=== PATIENT | female | born 1975 | race Caucasian/White ===

== ENCOUNTER 2018-01-11 08:44 | Emergency (ER) | payer MEDICAID, SELFPAY ==
[2018-01-11 08:53] VITALS: BP 141/89; PULSE 88; RESP 16; TEMP 36; O2SAT 98
[2018-01-11 10:02] LABS: Bilirubin Small (Negative); Blood Small (Negative); Clarity Sl Cloudy; Glucose Negative (Negative); Ketones 15 mg/dL (Negative); Leukocyte Esterase Moderate (Negative); Nitrite Positive (Negative); Specific Gravity 1.015 (1.005-1.025); pH 5.5 (5-8)
--- NOTE | 2018-01-11 10:06 | ED.GENADUL_ITS ---
Disposition Clinical Impression: Herpes simplex virus (HSV) infection of vagina Disposition: HOME Instructions: Genital Herpes Simplex (ED) Additional Instructions: Take antiviral medication as prescribed. 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 Return to the emergency department immediately for any worsening or new concerning symptoms. Prescriptions: ValACYclovir [Valtrex] 1,000 mg PO DAILY #5 tab Referrals: Stella Mistry MD [ [facility] STAFF PHYSICIAN] - Medical Decision Making - Medical Decision Making 42-year-old female here with recurrent herpes vaginalis. Plan to treat with Valtrex 1 g daily 5 days. Patient given oxycodone 5 mg, 1 tablet to go for severe pain. Patient was instructed to follow-up with her movie shot camera operator. She understands that she is currently contagious and should abstain from sexual activity. History of Present Illness - General Chief complaint: Abd Prob Stated complaint: UNKNOWN Time Seen by Provider: 01/11/18 09:21 Source: patient Mode of arrival: ambulatory Limitations: no limitations - History of Present Illness Initial comments: -year-old female with history of vaginal herpes, endometriosis, presents with chief complaint of vaginal pain. Patient notes moderate to severe pain described as burning and itching that started 4 days ago and has persisted. Pain is worse with urination. She has no associated vaginal discharge. She has had some spotting recently. Patient notes she contracted herpes from her ex- 5 years ago and has had 2 outbreaks with similar symptoms in the past. She is not on chronic antiviral therapy. - Related Data Acetaminophen [Tylenol] 1,000 mg PO Q6H PRN 01/11/18 Ibuprofen 2 - 4 tab PO Q8H PRN 01/11/18 ValACYclovir [Valtrex] 1,000 mg PO DAILY #5 tab 01/11/18 Allergies Allergy/AdvReac Type Severity Reaction Status Date / Time sulfamethoxazole Allergy Unknown Unverified 01/11/18 08:55 [From Bactrim] tramadol HCl [From Ultracet] Allergy Unknown Unverified 01/11/18 08:55 trimethoprim [From Bactrim] Allergy Unknown Unverified 01/11/18 08:55 Review of Systems Constitutional: denies: chills, fever Gastrointestinal: abdominal pain (Lower suprapubic abdominal discomfort mild). denies: nausea, vomiting, diarrhea Genitourinary: as per HPI, dysuria. denies: discharge Skin: denies: rash Neurological: denies: headache Past Medical History - Past Medical History Herpes vaginalis, endometriosis - Social History Smoking status: current everyday smoker Alcohol use: none General Exam - General Limitations: no limitations General appearance: alert, in no apparent distress - Eye Eye exam: Absent: scleral icterus, conjunctival injection - Respiratory Respiratory exam: Present: normal lung sounds bilaterally - Cardiovascular Cardiovascular Exam: Present: regular rate, normal rhythm - GI/Abdominal GI/Abdominal exam: Present: soft. Absent: distended, tenderness - External exam: Present: lesions (Tender shallow ulcer noted just inside the introitus right labial, no discharge or bleeding, exam limited secondary to pain ), other (Exam performed with female nurse Pa present). Absent: swelling - Neurological Exam Neurological exam: Present: alert. Absent: altered - Skin Skin exam: Present: warm, dry, intact Course Vital Signs - 24 hr 01/11/18 08:53 Temperature 36.0 C L Pulse 88 Respiratory 16 Rate Blood Pressure 141/89 Pulse Oximetry 98
[2018-01-11 10:15] LABS: Bacteria Many HPF (Negative); Crystals Negative HPF (Negative); Epithelial Cells Few HPF (Negative); Mucus Trace (Negative); Other Cells Rare Renal (Negative); RBC 20-50 (0-2); WBC >50 HPF (0-5)
[2018-01-11] MEDS: oxyCODONE 5 MG TAB PO (10:15)
[2018-01-11 10:16] LABS: C & S Indicated? Yes
--- NOTE | 2018-01-13 09:57 | ED.FU.B ---
- Follow Up Follow Up Plan: patient's urine grew e coli, attempted to reach patient to see if she was symptomatic but no answer, message left for her to call back
--- NOTE | 2018-01-13 11:59 | ED.FU.B ---
- Follow Up Follow Up Plan: Clair called back and states she has had urinary symptoms including burning. I confirmed she has no allergies to cipro so I called this in to her pharmacy at [facility]
== END 2018-01-11 10:18 | disposition home or self-care (01) ==
PROVIDERS: Emergency Provider Student in an Organized Health Care Education/Training Program; PCP Nurse Practitioner Family
DX: A60.04 Herpesviral vulvovaginitis (principal); N39.0 Urinary tract infection, site not specified; B96.20 Unspecified Escherichia coli [E. coli] as the cause of diseases classified elsewhere
CPT/HCPCS: 81025; 87077; 99283; 81003; 81015; 87086; 87186

== ENCOUNTER 2020-01-02 01:09 | Outpatient (CLI) | payer MEDICAID, SELFPAY ==
--- NOTE | 2020-01-02 | DI.MAMMO_ITS ---
EXAM: MAMMO SCREENING CLINICAL HISTORY: SCREENING, Z12.39 TECHNIQUE: Mammograms were interpreted according to the usual protocol including computer analysis w [employer] CAD system, tomosynthesis and C-view imaging. COMPARISON: FINDINGS: The breasts are of moderate density with fairly symmetrical distribution of fibroglandular tissue. N o dominant mass or clumped microcalcification is identified in either breast. The current examinatio n is compared with previous examinations including August 2017 and there has been no gross interval ch nelson in appearance in comparison with the prior studies. IMPRESSION: No specific evidence of malignancy at this time. Routine screening examinations are suggested at yea rly intervals in this age group due to the family history of breast carcinoma. BI-RADS Cat 1 - Negative: Breast Density - Category B - Scattered areas of fibroglandular density
== END 2020-01-02 01:29 ==
PROVIDERS: PCP Nurse Practitioner Family; Visit Provider Nurse Practitioner Family
DX: Z12.31 Encounter for screening mammogram for malignant neoplasm of breast (principal); R92.2 Inconclusive mammogram; Z80.3 Family history of malignant neoplasm of breast
CPT/HCPCS: 77063; 77067

== ENCOUNTER 2021-11-27 13:42 | Emergency (ER) | payer MEDICAID, SELFPAY ==
--- NOTE | 2021-11-27 13:45 | RT.EKG_ITS ---
APPROVED REPORT Exam: Resting ECG Reason for Exam: Chest pain Patient Location: E HR:59 bpm ECG Measurements Heart Rate 59 AXIS MT 169 P 68 QRSd 83 QRS 7 QT 419 T 45 QTc 417 Conclusion Sinus bradycardia.. Probable left atrial enlargement.
[2021-11-27 13:52] VITALS: BP 142/96; PULSE 70; RESP 18; TEMP 36.6; O2SAT 98
[2021-11-27 14:02] VITALS: RESP 17
--- NOTE | 2021-11-27 14:15 | DI.CT_ITS ---
Exam(s) CT CHEST PE CTA EXAM: CT CHEST PE CTA CLINICAL HISTORY: Shortness of breath, chest pain radiating back. TECHNIQUE: Imaging Protocol: CT angiography of the chest was performed using pulmonary embolus zully col. Multi planar reconstructions were performed. CONTRAST MATERIAL: Intravenous: Omnipaque 350 Contrast volume: 100 cc COMPARISON: No exams were available for comparison FINDINGS: CHEST: PULMONARY ARTERIES: There are no intraluminal filling defects to suggest acute pulmonary emboli. LUNGS: There are no confluent infiltrates nor evidence of pulmonary infarction.. There are no pleural effusions. No pulmonary edema. MEDIASTINUM: There is no hilar nor mediastinal adenopathy. Visualized thyroid unremarkable. CARDIAC: Heart size is upper normal. There is no pericardial effusion.Caliber of the thoracic aorta is within normal limits. There is no prominent shift of the interventricular septum. PARTIALLY VISUALIZED UPPERMOST ABDOMEN: Mild reflux of contrast into the intrahepatic IVC OSSEOUS: No significant osseous lesions.. IMPRESSION: 1. No evidence of acute pulmonary emboli. No evidence of pulmonary infarction.No pleural effusions. 2. Mild reflux of contrast into the intrahepatic IVC indicates possible element of right heart strain . 3. Heart size upper normal. There is no pericardial effusion RADIATION DOSE DELIVERED: 274.64mGy.cm Total DLP DATA REPOSITORY: All CT scans at this facility are submitted to the National Radiology Data Registry (NRDR) Dose Index Registry (DIR) with the [employer] (ACR). RADIATION OPTIMIZATION: All CT scans at this facility use at least one of these dose optimization te chniques: automated exposure control; mA and/or kV adjustment per patient size (includes targeted exa ms where dose is matched to clinical indication); or iterative reconstruction.
--- NOTE | 2021-11-27 14:28 | W.ED.GENAD ---
Discharge Plan Disposition Patient Disposition: HOME Condition: Stable Discharge Details Clinical Impression: Hypertension, Chest pain Primary Care Provider: Nadya Presley ED Provider: Anika Baez Home Meds and New Rx's Prescriptions: Continued lamotrigine 150 mg tablet 1 tab PO DAILY Label Comments: TAKE 1 TABLET BY MOUTH ONCE DAILY gabapentin 300 mg capsule 1 cap PO HS Label Comments: TAKE 1 CAPSULE BY MOUTH THREE TIMES DAILY lisinopril 5 mg Tablet 5 mg PO DAILY gabapentin 100 mg capsule 1 cap PO DAILY AM Label Comments: TAKE 1 CAPSULE BY MOUTH ONCE DAILY AT NIGHT WITH A 300MG CAPSULE topiramate 50 mg tablet 1 tab PO DAILY Label Comments: TAKE 1 TABLET BY MOUTH ONCE DAILY lorazepam 0.5 mg tablet 1 tab PO DAILY PRN Label Comments: TAKE 1 TABLET BY MOUTH ONCE DAILY NEEDED FOR 28 DAYS FOR PANIC acetaminophen [Mapap Extra Strength] 500 MG tablet 1,000 mg PO Q6H PRN ibuprofen 200 MG tablet 2 - 4 tab PO Q8H PRN valacyclovir 1,000 MG tablet 1,000 mg PO DAILY Qty: 5 0RF Discharge Instructions Instructions: Chest Pain (ED), Hypertension (ED) Additional Instructions: There is some concerning findings on the CT which show possible pulmonary hypertension. At this time please continue taking your blood pressure medication as directed have the echocardiogram scheduled within the next 3 to 5 days and follow-up with your primary care provider. Please take a baby aspirin 81 mg chewable once daily. Discussed with your primary care provider increasing your lisinopril to 10 mg a day. Follow up with primary care provider in 3-5 days. Return to ED sooner if any worsening or concerns. Increase oral fluids. Please take Tylenol or Ibuprofen with food every 4-6 hours as needed for pain and swelling. At this time there is no evidence for heart attack or any emergent condition which would require you to be admitted. Stand Alone Forms: Work Release Referrals: Nadya Presley [Primary Care Provider] - 5 days Discharge Data Discharge Date/Time-TO BE ENTERED AT DEPARTURE: 11/27/21 18:52 Medical Decision Making <Benjamín Varela NP - Last Filed: 12/01/21 11:25> Patient presenting to the emergency department for chief complaint of chest pain that has been going on for 2 to 3 weeks. Patient was newly diagnosed with hypertension but this morning she woke up with worsening left-sided chest pain, radiating up into her clavicle, neck, and into her back. She states that this is significantly abnormal. Patient does have history of anxiety but denies this being any sort of panic type symptoms. She did state a elevated blood pressure this morning but has been taking her normal prescribed medications. Cardiac and respiratory exam is otherwise unremarkable except for some tenderness and subjective swelling surrounding the left clavicle. Patient denies any injury or trauma. We will plan on checking patient's labs, standard cardiac labs, and performing CTA for evaluation of possible PE or aortic abnormality given description of radiating pain. Patient does report slight headache so we will give aspirin and continue to monitor. Review of initial labs show an unremarkable CBC, CMP does show elevated anion gap of 12.1 with creatinine 1.1 and a low AST otherwise initial troponin is nondetectable and BNP is 223. We will give patient some IV fluids for hydration pending second troponin and CT scan results. <Anika Baez NP - Last Filed: 11/27/21 23:07> Patient presenting to the emergency department for chief complaint of chest pain that has been going on for 2 to 3 weeks. Patient was newly diagnosed with hypertension but this morning she woke up with worsening left-sided chest pain, radiating up into her clavicle, neck, and into her back. She states that this is significantly abnormal. Patient does have history of anxiety but denies this being any sort of panic type symptoms. She did state a elevated blood pressure this morning but has been taking her normal prescribed medications. Cardiac and respiratory exam is otherwise unremarkable except for some tenderness and subjective swelling surrounding the left clavicle. Patient denies any injury or trauma. We will plan on checking patient's labs, standard cardiac labs, and performing CTA for evaluation of possible PE or aortic abnormality given description of radiating pain. Patient does report slight headache so we will give aspirin and continue to monitor. Review of initial labs show an unremarkable CBC, CMP does show elevated anion gap of 12.1 with creatinine 1.1 and a low AST otherwise initial troponin is nondetectable and BNP is 223. We will give patient some IV fluids for hydration pending second troponin and CT scan results. 1648: SJ: Care assumed from provider (Cristofer Varela NP) Please see their initial HPI, PE, and documentation. Discussed patient details and case and pending workup and disposition. Patient is hemodynamically stable, and alert and oriented. At the time of sign out awaiting CT result and repeat Trop. 1649: Patient c/o severe SILVA, has recieved Aspirin. Will give 1gm Tylenol Patient is A&O x 4 no neuro deficits. 1714: CT shows diffuse interstitial infiltrates, questionable reflux of contrast within the inferior vena cava and hepatic veins consider pulmonary hypertension. At this time patient is hemodynamically stable. O2 sat 100%, room air. At this time pending repeat troponin will recommend order outpatient echocardiogram referral for follow-up to PCP. Repeat troponin within normal limits, patient reevaluation no jugular vein distention, proBNP within normal limits, patient does report some dyspnea. I did discuss CT results with her she verbalizes understanding. Outpatient echocardiogram ordered with follow-up with PCP. I did recommend to discuss whether or not lisinopril should be increased with PCP. This text was generated using [employer] system, please disregard any oddities of phrase or misspellings. Medical Records Medical records reviewed: Yes I reviewed the patient's medical records. Imaging Data Radiologic Study: Imaging: CT Scan Radiologist's impression: CR CHEST 2 VIEWS PA,LAT 05/19/2017 10:00 AM FINDINGS: Pulmonary arteries: There is no evidence of filling defects within the pulmonary arterial circulation to suggest pulmonary embolism. The pulmonary artery is normal in caliber. Aorta: The aorta is normal. Lungs: There are diffuse interstitial infiltrates present. This may represent cardiogenic versus noncardiogenic edema. An acute inflammatory process and/or infectious process/pneumonia are not excluded. There is minimal bibasilar atelectasis. There is heterogeneous attenuation of the pulmonary parenchyma, consistent with air trapping from underlying small airways disease. Mild paraseptal emphysematous changes present at the apices of the lungs bilaterally. Pleural spaces: There is no evidence of pneumothorax. There are no pleural effusions present. IMPRESSION: 1. There are diffuse interstitial infiltrates present. This may represent cardiogenic versus noncardiogenic edema. An acute inflammatory process and/or infectious process/pneumonia are not excluded. 2. There is heterogeneous attenuation of the pulmonary parenchyma, consistent with air trapping from underlying small airways disease. 3. There is no evidence of filling defects within the pulmonary arterial circulation to suggest pulmonary embolism. 4. The right ventricular to left ventricular ratio is abnormal measuring approximately 1.1. There is reflux of contrast within the inferior vena cava and hepatic veins consistent with elevated right-sided cardiac pressures. This may reflect right heart strain. Consider pulmonary hypertension. Thank you for allowing us to participate in the care of your patient. Dictated and Authenticated by: Joey Shore MD HPI <Benjamín Varela NP - Last Filed: 12/01/21 11:25> General Mode of arrival: ambulatory. Date/Time Provider Initiated Documentation: 11/27/21 13:46. Limitations to Documentation: no limitations. Information obtained by: patient and RN notes reviewed. History of Present Illness 46 year old F presents to the emergency department with the chief complaint of Chest pain, described as moderate, with intensity rated at 5. Quality is described as aching, and is localized to the chest. Patient reports radiation to back. Patient started experiencing this week(s) (3) and it has been constant. No relieving factors improve symptom(s), No exacerbating factors reported . Patient notes headaches; denies fever/chills. Patient did receive the following treatments prior to arrival, none Related Data Home Medications Medication Instructions Recorded Confirmed acetaminophen 500 mg tablet (Mapap 1,000 mg PO Q6H PRN 01/11/18 11/27/21 Extra Strength) ibuprofen 200 mg tablet 2 - 4 tab PO Q8H PRN 01/11/18 11/27/21 valacyclovir 1 gram tablet 1,000 mg PO DAILY #5 tabs 01/11/18 11/27/21 gabapentin 100 mg capsule 1 cap PO DAILY AM 11/27/21 11/27/21 gabapentin 300 mg capsule 1 cap PO HS 11/27/21 11/27/21 lamotrigine 150 mg tablet 1 tab PO DAILY 11/27/21 11/27/21 lisinopril 5 mg tablet 5 mg PO DAILY 11/27/21 11/27/21 lorazepam 0.5 mg tablet 1 tab PO DAILY PRN 11/27/21 11/27/21 topiramate 50 mg tablet 1 tab PO DAILY 11/27/21 11/27/21 Previous Rx's Medication Instructions Recorded valacyclovir 1 gram tablet 1,000 mg PO DAILY #5 tabs 01/11/18 Allergies Allergy/AdvReac Type Severity Reaction Status Date / Time sulfamethoxazole Allergy Unknown Unverified 11/27/21 14:15 [From Bactrim] tramadol HCl [From Ultracet] Allergy Unknown Unverified 11/27/21 14:15 trimethoprim [From Bactrim] Allergy Unknown Unverified 11/27/21 14:15 General Stated Complaint: Chest Pain LISA: 3 Review of Systems <Benjamín Varela NP - Last Filed: 12/01/21 11:25> Constitutional Constitutional: Denies chills, Denies fever(s) and Denies malaise ENT Ears, Nose, Mouth, and Throat: Reports neck pain Cardiovascular Cardiovascular: Reports as per HPI, Reports chest pain, Denies chest pain with activity, Denies syncope, Denies irregular heart rhythm, Denies palpitations and Reports dyspnea Respiratory Respiratory: Denies cough, Denies hemoptysis and Reports dyspnea Gastrointestinal Gastrointestinal: Denies abdominal pain, Denies nausea and Denies vomiting Musculoskeletal Musculoskeletal: Reports neck pain Neurologic Neurologic: Denies syncope Psychiatric Psychiatric: Denies anxiety Endocrine Endocrine: Denies cold intolerance, Denies heat intolerance and Denies palpitations PFSH <Benjamín Varela NP - Last Filed: 12/01/21 11:25> All Active Problems (Updated 11/27/21 @ 18:37 by Anika Baez NP) Hypertension (Chronic) Chest pain (Acute) Social History Smoking/Tobacco Use Status: Current every day Smoking risk assessment performed?: Yes Alcohol Intake: current Alcohol Intake frequency: holidays/special occasions only Drug use: Daily Substance use type: marijuana Do you feel safe in your relationship?: Yes Exam <Benjamín Varela NP - Last Filed: 12/01/21 11:25> Const General: cooperative, healthy appearing, comfortable, no acute distress, not diaphoretic and not ill appearing Nutritional Appearance: average body habitus Orientation: alert, awake and oriented x3 Limitations: mental status not altered Neck Neck: normal visual inspection, full ROM, trachea midline, supple and no anterior neck swelling Thyroid: thyroid normal Carotids: normal carotid upstroke and no bruits Chest Chest: normal inspection of the chest and tenderness clavicle on the left (Tissue surrounding left clavicle mostly to proximal to mid) Resp Effort & Inspection: normal respiratory effort and able to speak in complete sentences Auscultation: clear to auscultation bilaterally Cardio Jugular venous pressure: no JVD Palpation: normal PMI Rate: regular rate Rhythm: regular rhythm Heart Sounds: S1 normal, S2 normal, no click, no gallops, no murmurs and no rubs Bruits: no abdominal aortic bruits and no carotid bruits Pulses: radial pulses present bilaterally 2+ GI Inspection: normal to inspection Palpation: soft, no aortic enlargement, no pulsatile masses and nontender Auscultation: normal bowel sounds Skin General skin exam: no rashes or lesions noted Neuro General: patient alert, patient awake, patient oriented x3, tone normal and moves all extremities Course <Benjamín Varela NP - Last Filed: 12/01/21 11:25> Vital Signs Vital signs: Vital Signs Temperature 36.6 C 11/27/21 13:52 Pulse 70 11/27/21 13:52 Respiratory Rate 18 11/27/21 13:52 Blood Pressure 142/96 H 11/27/21 13:52 Pulse Oximetry 98 11/27/21 13:52 Temperature 36.6 C 11/27/21 13:52 Temperature Source Temporal Artery Scan 11/27/21 13:52 Pulse 70 11/27/21 13:52 Respiratory Rate 17 11/27/21 14:02 Respiratory Effort Non-Labored 11/27/21 14:02 Respiratory Depth Normal 11/27/21 14:02 Respiratory Pattern Irregular 11/27/21 14:02 Blood Pressure 142/96 H 11/27/21 13:52 Blood Pressure Position Sitting 11/27/21 13:52 Pulse Oximetry 98 11/27/21 13:52 Oxygen Delivery Method Room Air 11/27/21 13:52 Oxygen Flow Rate 0 11/27/21 13:52 Sign Out <Benjamín Varela NP - Last Filed: 12/01/21 11:25> Sign Out Data: Sign Out Comment: Patient pending repeat troponin along with CT imaging and reassessment. Last updated by Benjamín Varela NP at 11/27/21 15:54
[2021-11-27] MEDS: Aspirin 81 MG CHEW 324 MG CH (14:39)
[2021-11-27 14:47] LABS: Abs Immature Grans 0.02 10^3/uL (0.0-0.06); Absolute Basophil Count 0.01 10^3/uL (0.0-0.2); Absolute Eosinophil Count 0.03 10^3/uL (0.0-0.7); Absolute Lymphocyte Count 2.75 10^3/uL (1.2-3.4); Absolute Monocyte Count 0.51 10^3/uL (0.1-0.8); Absolute Neutrophil Count 4.73 10^3/uL (1.2-6.7); Basophils % 0.1; Eosinophils % 0.4; HCT 35.6 % (36.0-46.0); HGB 12.2 g/dL (11.2-15.7); Immature Grans % 0.2; Lymphocytes % 34.2; MCH 31.6 pg (27.0-33.0); MCHC 34.3 % (32.0-36.0); MCV 92 fL (80-95); MPV 9.5 fL (8.0-11.0); Monocytes % 6.3; Neutrophils % 58.8; Platelet Count 333 10^3/uL (130-400); RBC 3.86 10^6/uL (3.93-5.22); RDW 12.5 % (11.7-14.6); RDW-SD 42.5 fL; WBC 8.05 10^3/uL (4.4-10.8)
[2021-11-27 15:07] LABS: ALT 14 U/L (14-59); AST 11 U/L (15-37); Alkaline Phosphatase 74 U/L (46-116); Anion Gap 12.2 mmol/L (3-11); BUN 9 mg/dL (7-18); Bilirubin, Total 0.4 mg/dL (0.2-1.0); CO2 21.8 mmol/L (21.0-32.0); CREATININE 1.1 mg/dL (0.55-1.02); Calcium 9.3 mg/dL (8.5-10.1); Chloride 105 mmol/L (98-107); Estimated GFR 53.01 (mL/min/1.73m2); Glucose 96 mg/dL (74-106); Magnesium 2.2 mg/dL (1.8-2.4); Potassium 3.5 mmol/L (3.5-5.1); Sodium 139 mmol/L (136-145); Total Protein 7.2 g/dL (6.4-8.2); Troponin I < 50 ng/L (<or=60)
[2021-11-27 15:11] LABS: NT-proBNP 223 pg/mL (<300)
[2021-11-27] MEDS: Normal Saline 1,000 ML 1000 ML IV (16:08)
[2021-11-27] MEDS: Omnipaque 350 MG/ML 100 ML BTL IJ (16:20)
--- NOTE | 2021-11-27 16:49 | DI.VRAD_ITS ---
PROCEDURE INFORMATION: Exam: CTA Chest With Contrast Exam date and time: 11/27/2021 4:26 PM Age: 46 years old Clinical indication: Other: Shortness of breath, chest pain radiating to the back TECHNIQUE: Imaging protocol: Computed tomographic angiography of the chest with contrast. 3D rendering (Not supervised by radiologist): MIP and/or 3D reconstructed images were created by the technologist. Radiation optimization: All CT scans at this facility use at least one of these dose optimization techniques: automated exposure control; mA and/or kV adjustment per patient size (includes targeted exams where dose is matched to clinical indication); or iterative reconstruction. Contrast material: OMNIPAQUE 350; Contrast volume: 100 ml; Contrast route: INTRAVENOUS (IV); COMPARISON: CR CHEST 2 VIEWS PA,LAT 05/19/2017 10:00 AM FINDINGS: Pulmonary arteries: There is no evidence of filling defects within the pulmonary arterial circulation to suggest pulmonary embolism. The pulmonary artery is normal in caliber. Aorta: The aorta is normal. Lungs: There are diffuse interstitial infiltrates present. This may represent cardiogenic versus noncardiogenic edema. An acute inflammatory process and/or infectious process/pneumonia are not excluded. There is minimal bibasilar atelectasis. There is heterogeneous attenuation of the pulmonary parenchyma, consistent with air trapping from underlying small airways disease. Mild paraseptal emphysematous changes present at the apices of the lungs bilaterally. Pleural spaces: There is no evidence of pneumothorax. There are no pleural effusions present. Heart: The right ventricular to left ventricular ratio is abnormal measuring approximately 1.1. There is reflux of contrast within the inferior vena cava and hepatic veins consistent with elevated right-sided cardiac pressures. This may reflect right heart strain. Consider pulmonary hypertension. Lymph nodes: No evidence of mediastinal lymphadenopathy. Bones/joints: The skeletal structures and soft tissues show no evidence of fracture or other acute processes. Soft tissues: The upper abdominal viscera are unremarkable. IMPRESSION: 1. There are diffuse interstitial infiltrates present. This may represent cardiogenic versus noncardiogenic edema. An acute inflammatory process and/or infectious process/pneumonia are not excluded. 2. There is heterogeneous attenuation of the pulmonary parenchyma, consistent with air trapping from underlying small airways disease. 3. There is no evidence of filling defects within the pulmonary arterial circulation to suggest pulmonary embolism. 4. The right ventricular to left ventricular ratio is abnormal measuring approximately 1.1. There is reflux of contrast within the inferior vena cava and hepatic veins consistent with elevated right-sided cardiac pressures. This may reflect right heart strain. Consider pulmonary hypertension. Dictated and Authenticated by: Joey Shore MD. Ordering:ROSIE Butts MD
[2021-11-27] MEDS: Acetaminophen 500 MG TAB 1000 MG PO (17:11)
[2021-11-27 17:58] LABS: Troponin I < 50 ng/L (<or=60)
[2021-11-27 18:48] VITALS: BP 152/84; PULSE 64; O2SAT 99
== END 2021-11-27 18:52 | disposition home or self-care (01) ==
PROVIDERS: Nurse Practitioner Family; Emergency Provider Registered Nurse Emergency; PCP Nurse Practitioner Family
DX: I10 Essential (primary) hypertension (principal); R07.9 Chest pain, unspecified; M54.2 Cervicalgia; M54.9 Dorsalgia, unspecified; F17.200 Nicotine dependence, unspecified, uncomplicated
CPT/HCPCS: 36415; 71275; 80053; 93005; 96360; 99284; 83735; 83880; 84484; 85025; 93010; J3490

== ENCOUNTER → 2021-12-02 01:21 | Outpatient (CLI) | payer MEDICAID, SELFPAY ==
--- NOTE | 2021-12-02 15:03 | DI.US_ITS ---
APPROVED REPORT EXAM: Comprehensive 2D, Doppler, and color-flow Echocardiogram Patient Location: Out[facility]Patient [facility] Servicer: Alexa Harman RDCS (AE) Indications: Chest pain Other Information Study Quality: Adequate Conclusion Normal left ventricular wall thickness and chamber size. Estimated ejection fraction is 60%. Wall m otion is normal Normal right ventricular size and systolic function Both atria are normal in size There is no structural or hemodynamically significant valvular disease Wall motion Left Ventricle The left ventricle is normal size. The left ventricular systolic function is normal. The left ventric ular ejection fraction is within the normal range. There is normal left ventricular wall thickness. T here is normal LV segmental wall motion. There is no ventricular septal defect visualized. LVEF is 60 %. Right Ventricle The right ventricle is normal size. The right ventricular systolic function is normal. Atria The left atrium size is normal. The right atrium size is normal. The interatrial septum is intact wit h no evidence for an atrial septal defect. Aortic Valve The aortic valve is normal in structure. Aortic valve is trileaflet. There is no aortic valvular sten osis. No aortic regurgitation is present. Mitral Valve The mitral valve is normal in structure. No evidence of mitral valve stenosis. Trace mitral regurgita tion. Tricuspid Valve The tricuspid valve is normal in structure. There is no tricuspid valve stenosis. Trace tricuspid reg urgitation. Unable to assess PA pressure. Pulmonic Valve The pulmonary valve is normal in structure. There is no pulmonic valvular stenosis. There is no pulmo richard valvular regurgitation. Great Vessels The aortic root is normal in size. The ascending aorta is normal in size. Aortic arch is normal in ca liber. IVC is normal in size and collapses >50% with inspiration. Pericardium There is no pericardial effusion. 2D Dimensions IVSD d PLAX 0.98 cm F: 0.6-1.0 LV Vol A2C d MOD 62.0 mL LVPW d PLAX 0.96 cm F: 0.6 - 1.0 LV Vol A4C d MOD 72.8 mL LVID d PLAX 4.11 cm F: 3.8 - 5.2 LA vol/ BSA A2C s A-L 28.7 mL/m2 LVDs 2.75 cm F: 2.2 - 3.5 LA vol/ BSA A4C s A-L 12.7 mL/m2 Ao Root d 2.66 cm F: 2.7 - 3.3 LA Vol/ BSA Biplane s A-L 20.5 mL/m2 RA Area A4C 12.26 cm2 LA Area A4C s MOD 9.96 cm2 RA Vol/ BSA A4C s A-L 17.7 mL/m2 LA Area A2C s MOD 16.07 cm2 Ao Asc Diam d 3.02 cm F: 2.3 - 3.1 LV EF A4C MOD 61.3 % LV EF Teichholz 61.9 % LV EF A2C MOD 60.6 % LVEF (Owen's) 62.11 % F: 54 - 74 LV EF Biplane MOD 62.1 % LV Volume 58.21 mL F: 46 - 106 SV 43.98 mL LV Volume Index 37.55 mL/m2 F: 29 - 61 SV Index 28.33 mL/m2 LV Vol Biplane MOD 70.8 mL FS 32.90 % M-Mode TAPSE 2.28 cm (M/F) >1.7 LV Diastology MV E' medial 0.097 (>0.07 m/s) E/A Ratio 1.5 LV E/e MED 9.90 (<14) MV E Vmax 0.96 (0.4-1.3 m/s) MV E' lateral 0.123 (>0.1 m/s) MV A Vmax 0.65 (0.4-1.3 m/s) LV E/e LAT 7.75 (<14) MV E/A Ratio 1.38 MV E/E' medial 9.92 MV E/E' lateral 7.76 Aortic Valve LVOT Area 3.01 cm2 AoV Area Vmax 2.36 cm2 LVOT Vmax 1.13 m/s AoV Area/ BSA (Vmax) 1.52 cm2/m2 LVOT Mean Hung. 0.71 m/s MURALI Mean Hung. 2.04 cm2 LVOT Peak Grad 5.1 mmHg MURALI Mean Hung. Index 1.31 cm2/m2 LVOT Mean Grad 2.4 mmHg LVOT VTI 0.252 m LVOT Diam s 1.95 cm AoV Vmax 1.45 m/s Velocity Ratio 0.77 AoV Mean Hung. 1.05 m/s AoV Peak Grad 8.4 mmHg LVOT SV 75.87 mL AoV Mean Grad 4.8 mmHg AoV VTI 0.301 m AoV Area VTI 2.52 cm2 AoV Area/ BSA (VTI) 1.62 cm/m2 Mitral Valve MV DT 191 (160-240 msec) MV PHT 55 msec MV Area PHT 3.98 cm2 MV VTI 0.363 m MV Area VTI 2.09 (4.0-6.0 cm2) Pulmonary Valve PV Vmax 0.95 (0.5-1.5 m/s) RVOT Peak Gr. 3.05 mmHg PV Peak Grad 3.6 mmHg RVOT Mean Gr. 1.50 mmHg PV Mean Grad 2.0 mmHg RVOT VTI 0.164 m PV VTI 0.207 m RVOT Vmax 0.87 m/s
== END ==
PROVIDERS: PCP Nurse Practitioner Family; Visit Provider Nurse Practitioner Family
DX: R07.89 Other chest pain (principal); I10 Essential (primary) hypertension
CPT/HCPCS: 93306

== ENCOUNTER 2021-12-07 08:30 | Outpatient (RCR) | payer MEDICAID, SELFPAY ==
--- NOTE | 2021-12-07 08:15 | HOLTER_ITS ---
APPROVED REPORT Conclusion This was a 48-hour Holter monitor ordered for palpitations Rhythm throughout was sinus with an average heart rate of 64. Minimum was 44, maximum 114 A total of 3 isolated premature ventricular contractions were seen A total of 4 isolated atrial premature beats were noted There was no atrial fibrillation, no high-grade AV block, no pauses greater than 3 seconds There were no patient symptoms reported
== END 2021-12-26 23:59 | disposition home or self-care (01) ==
LOC: RT 08:30
PROVIDERS: PCP Nurse Practitioner Family; Visit Provider Nurse Practitioner Family
DX: R07.89 Other chest pain (principal); R00.2 Palpitations; I49.1 Atrial premature depolarization
CPT/HCPCS: 93225; 93226

== ENCOUNTER → 2021-12-21 02:37 | Outpatient (CLI) | payer MEDICAID, SELFPAY ==
--- NOTE | 2021-12-21 14:15 | DI.RAD_ITS ---
Exam(s) XR LUMBAR SPINE COMPLETE EXAM: XR LUMBAR SPINE COMPLETE CLINICAL HISTORY: ACUTE LBP, M54.50, WO SCIATICA. TECHNIQUE: 2D digital imaging was performed of the lumbar spine. Five images were obtained. AP, la teral, right oblique, left oblique and L5-S1 spot views were obtained. COMPARISON: No exams were available for comparison FINDINGS: BONES: No fracture or destructive lesion. Vertebral bodies are unremarkable. There are degenerative c hanges of the facets at L5-S1. DISKS: Intervertebral disc spaces are maintained. ALIGNMENT: Lumbar spinal alignment is within normal limits. No spondylolysis or spondylolisthesis. SOFT TISSUE: Normal. IMPRESSION: Mild degenerative changes in the lumbar spine. DATA REPOSITORY: RADIATION DOSE DELIVERED:
--- NOTE | 2021-12-21 14:45 | DI.MAMMO_ITS ---
Exam(s) MAMMO SCREENING EXAM: MAMMO SCREENING CLINICAL HISTORY: SCREENING, Z12.31 TECHNIQUE: Bilateral full field digital CC and MLO mammographic images were obtained with 3D tomosyn thesis and utilizing computer aided detection (CAD). COMPARISON: Available for comparison. FINDINGS: Masses/Architectural Distortion: None seen. Microcalcifications: No suspicious pleomorphic-type are seen. Skin Thickening/Nipple Retraction: None. IMPRESSION: 1. No significant interval change with no specific features of malignancy noted. 2. Unless there is more urgent need, screening mammography is recommended, as per [employer] guidelines. BI-RADS Category 1 - Negative Breast Density - Category B - Scattered areas of fibroglandular density Breast density category C or D implies that the patient has dense breast tissue. Dense breast tissue is very common and is not abnormal but dense breast tissue can make it harder to find cancer on a ma mmogram. Also, dense breast tissue may increase their breast cancer risk. This information about the result of the mammogram report was provided to the patient to raise their awareness. Use this report when you speak with the patient about their risks for breast cancer, which includes their family hist ory. At that time, you may recommend for more screening tests (Ultrasound or MRI) as they might be us eful based on their risk. A negative radiographic report should not delay biopsy if a dominant or clinically suspicious mass is present. Up to ten percent of cancers are not identified on mammography. A negative report may reinforce clinical impression. Adenosis and dense breasts may obscure an underlying neoplasm. False positive reports average 6 to 10%. Patient will receive a letter notifying them of these results.
== END ==
PROVIDERS: PCP Nurse Practitioner Family; Visit Provider Nurse Practitioner Family
DX: Z12.31 Encounter for screening mammogram for malignant neoplasm of breast (principal); R92.8 Other abnormal and inconclusive findings on diagnostic imaging of breast; M47.816 Spondylosis without myelopathy or radiculopathy, lumbar region
CPT/HCPCS: 77063; 77067; 72110

== ENCOUNTER → 2023-08-10 01:37 | Outpatient (CLI) | payer MEDICAID, SELFPAY ==
--- NOTE | 2023-08-10 | DI.MAMMO_ITS ---
Exam(s) MAMMO SCREENING EXAM: MAMMO SCREENING CLINICAL HISTORY: SCREENING,Z12.31. TECHNIQUE: Bilateral full field digital CC and MLO mammographic images were obtained with 3D tomosyn thesis and utilizing computer aided detection (CAD). COMPARISON: Prior mammograms were reviewed. FINDINGS: There has been no significant change in the appearance and distribution of the fibroglandular tissue. There are no CAD designations. There are no new spiculated masses nor malignant appearing microcalcification groups. There is no significant architectural distortion nor skin thickening-retraction. IMPRESSION: No radiographic evidence of malignancy. BI-RADS Category 1 - Negative Breast Density - Category B - Scattered areas of fibroglandular density Breast density Category C or D implies that the patient has dense breast tissue. Dense breast tissue can make it harder to find cancer on a mammogram. Dense breast tissue is also associated with an incr eased risk of breast cancer. This information about the result of the mammogram report was provided to the patient to raise their awareness. Use this report when you speak with the patient about their risks for breast cancer, which includes their family history. At that time, you may recommend additional screening tests (Ultrasoun d or MRI) as these tests may add significant information. A negative radiographic report should not delay biopsy if a dominant or clinically suspicious mass is present. Up to ten percent of cancers are not identified on mammography. A negative report may reinforce clinical impression. Adenosis and dense breasts may obscure an underlying neoplasm. False positive reports average 6 to 10%. Patient will receive a letter notifying them of these results.
== END ==
PROVIDERS: PCP Nurse Practitioner Family; Visit Provider Nurse Practitioner Family
DX: Z12.31 Encounter for screening mammogram for malignant neoplasm of breast (principal)
CPT/HCPCS: 77063; 77067